=== PATIENT | female | born 1965 ===

== ENCOUNTER 2020-05-23 06:44 | Outpatient (NON) | payer BC, SELFPAY ==
[2020-05-25 00:53] LABS: SARS-CoV-2 RNA PCR Negative
== END 2020-05-23 06:45 ==
PROVIDERS: PCP Student in an Organized Health Care Education/Training Program; Visit Provider Student in an Organized Health Care Education/Training Program
DX: R05 Cough (principal); Z20.828 Contact with and (suspected) exposure to other viral communicable diseases
CPT/HCPCS: 87635; C9803; U0003